=== PATIENT | female | born 1995 | race Asian ===

== ENCOUNTER 2017-02-16 23:54 | Emergency (ER) | payer OTHER ==
[~2017-02-16] VITALS: Ht 167.6 cm; Wt 62.5 kg
[2017-02-17] VITALS: Ht 167.6 cm; Wt 62.5 kg
[2017-02-17] MEDS ORDERED: SOD CHLORIDE 0.9% 1,000 ML IV STA (00:04)
[2017-02-17] MEDS ORDERED: ONDANSETRON 4 MG INJ IV STA (00:04)
--- NOTE | 2017-02-17 00:17 | RADRPT ---
PROCEDURE: XR Chest. CLINICAL INDICATION: Chest pain. Syncope TECHNIQUE: Portable AP upright view of the chest was obtained. COMPARISON: None. FINDINGS: The cardiomediastinal silhouette is within normal limits. The lungs are clear. There is no evidenc e for pleural effusion, pneumothorax or pulmonary vascular congestion. The osseous structures are i ntact with no evidence for acute abnormality. RPTAT:HJJR IMPRESSION: No evidence for acute intrathoracic pathology. Physician David Date Time Electronically viewed and signed by Physician David on 02/17/2017 00:16 JR/
--- NOTE | 2017-02-17 00:48 | RADRPT ---
PROCEDURE: CT brain without contrast CLINICAL INDICATION: Syncope TECHNIQUE: A CT of the brain was performed utilizing axial sections from the skull base through th e vertex without contrast. Sagittal and coronal images were also reformatted. The exam CTDIvol = 45. 01 mGy and DLP = 810.25 mGy-cm. COMPARISON: None available FINDINGS: No acute intracranial hemorrhage is identified. There is no mass effect or midline shift. No extra -axial fluid collection is seen. The ventricles and sulci are within normal limits for size and con figuration. Small hypodensities within the white matter of the subcortical right frontal lobe likel y reflect the sequela of prior ischemia or trauma (series 2 image 23) Reynolds-white differentiation is preserved. The osseous structures are unremarkable. The mastoid air cells and visualized paranasal sinuses are clear. RPTAT:HJJR IMPRESSION: 1. No evidence of acute intracranial abnormality or mass effect. 2. Small hypodense area within the subcortical right frontal lobe white matter possibly the sequela of prior trauma or ischemia. Physician David Date Time Electronically viewed and signed by Physician David on 02/17/2017 00:48 /
[2017-02-17 00:55] LABS: BASOPHILS % 0.5 % (0.0-2.0); EOSINOPHILS % 0.4 % (0.0-7.0); HEMATOCRIT 37.6 % (37.0-47.0); HEMOGLOBIN 13.1 g/dl (12.0-16.0); LYMPHOCYTES # 2.8 10^3/ul (0.8-2.9); LYMPHOCYTES % 32.9 % (15.0-51.0); MEAN CORPUSCULAR HEMOGLOBIN 30.7 pg (29.0-33.0); MEAN CORPUSCULAR HGB CONC 34.8 g/dl (32.0-37.0); MEAN CORPUSCULAR VOLUME 88.1 fl (82.0-101.0); MEAN PLATELET VOLUME 9.7 fl (7.4-10.4); MONOCYTE # 0.5 10^3/ul (0.3-0.9); MONOCYTES % 6.2 % (0.0-11.0); NEUTROPHILS % 59.6 % (39.0-77.0); PLATELET COUNT 340 10^3/UL (140-415); RED BLOOD COUNT 4.27 10^6/ul (4.20-5.40); WHITE BLOOD COUNT 8.4 10^3/ul (4.8-10.8)
[2017-02-17 01:15] LABS: ANION GAP 21 (8-16); BLOOD UREA NITROGEN 11 mg/dl (7-20); CALCIUM 9.4 mg/dl (8.4-10.2); CARBON DIOXIDE 29 mmol/L (21-31); CHLORIDE 97 mmol/L (97-110); CREATININE 0.73 mg/dl (0.44-1.00); GLUCOSE 106 mg/dl (70-220); POTASSIUM 3.2 mmol/L (3.5-5.1); SODIUM 144 mmol/L (135-144)
[2017-02-17 01:24] LABS: ADD UMIC YES; UR ASCORBIC ACID NEGATIVE (NEGATIVE); UR BACTERIA FEW /HPF (NONE SEEN); UR BILIRUBIN (Dip) NEGATIVE (NEGATIVE); UR BLOOD (Dip) 1+ mg/dL (NEGATIVE); UR CLARITY SLIGHTLY CLOUDY (CLEAR); UR COLOR YELLOW (YELLOW); UR GLUCOSE (Dip) NEGATIVE (NEGATIVE); UR KETONES (Dip) 1+ mg/dL (NEGATIVE); UR LEUKOCYTE ESTERASE (Dip) TRACE Leu/ul (NEGATIVE); UR MUCUS MODERATE /HPF (NONE SEEN); UR NITRITE (Dip) NEGATIVE (NEGATIVE); UR RBC 4 /HPF (0-5); UR SPECIFIC GRAVITY (Dip) 1.028 (1.003-1.030); UR SQUAMOUS EPITHELIAL CELL FEW /HPF (FEW); UR TOTAL PROTEIN (Dip) NEGATIVE (NEGATIVE); UR UROBILINOGEN (Dip) 2+ mg/dL (NEGATIVE)
[2017-02-17 01:29] LABS: TROPONIN-I < 0.012 ng/ml (0.00-0.12)
[2017-02-17 01:40] LABS: CANNABINOIDS Positive (NEGATIVE)
--- NOTE | 2017-02-17 01:45 | ERD ---
ER Documentation Chief Complaint Date/Time DATE: 02/17/17 TIME: 01:44 Chief Complaint left head pain r/t fall,syncope,vomiting HPI There is a 22-year-old female with left hand pain status post falling and hitting her head. She did have 2 seconds of loss of consciousness. This happened last night. She said she has been nauseous and vomited 3 times today which is nonbilious nonbloody. No fevers no chills. No focal neurological complaints. Mild headache. No visual acuity changes. No other current issues ROS All systems reviewed and are negative except as per history of present illness. Allergies Allergies: Coded Allergies: No Known Allergy (Unverified , 02/17/17) PMhx/Soc Medical and Surgical Hx: pt denies Medical Hx, pt denies Surgical Hx Hx Alcohol Use: Yes Hx Substance Use: Yes Hx Tobacco Use: Yes Smoking Status: Current some day smoker Physical Exam Vitals Vital Signs Date Time Temp Pulse Resp B/P Pulse Ox O2 Delivery O2 Flow Rate FiO2 02/17/17 00:00 97.5 64 18 134/87 97 Physical Exam Const: [] Head: Atraumatic Eyes: Normal Conjunctiva ENT: Normal External Ears, Nose and Mouth. Neck: Full range of motion..~ No meningismus. Resp: Clear to auscultation bilaterally Cardio: Regular rate and rhythm, no murmurs Abd: Soft, non tender, non distended. Normal bowel sounds Skin: No petechiae or rashes Back: No midline or flank tenderness Ext: No cyanosis, or edema Neur: Awake and alert Psych: Normal Mood and Affect Result Diagram: 02/17/17 0030 02/17/17 0030 Results 24 hrs Laboratory Tests Test 02/17/17 00:30 White Blood Count 8.410^3/ul Red Blood Count 4.2710^6/ul Hemoglobin 13.1g/dl Hematocrit 37.6% Mean Corpuscular Volume 88.1fl Mean Corpuscular Hemoglobin 30.7pg Mean Corpuscular Hemoglobin Concent 34.8g/dl Red Cell Distribution Width 12.0% Platelet Count 53799^3/UL Mean Platelet Volume 9.7fl Neutrophils % 59.6% Lymphocytes % 32.9% Monocytes % 6.2% Eosinophils % 0.4% Basophils % 0.5% Nucleated Red Blood Cells % 0.0/100WBC Neutrophils # 5.010^3/ul Lymphocytes # 2.810^3/ul Monocytes # 0.510^3/ul Eosinophils # 0.010^3/ul Basophils # 0.010^3/ul Nucleated Red Blood Cells # 0.010^3/ul Urine Color YELLOW Urine Clarity SLIGHTLY CLOUDY Urine pH 6.0 Urine Specific Elmore 1.028 Urine Ketones 1+mg/dL Urine Nitrite NEGATIVEmg/dL Urine Bilirubin NEGATIVEmg/dL Urine Urobilinogen 2+mg/dL Urine Leukocyte Esterase TRACELeu/ul Urine Microscopic RBC 4/HPF Urine Microscopic WBC 7/HPF Urine Squamous Epithelial Cells FEW/HPF Urine Bacteria FEW/HPF Urine Mucus MODERATE/HPF Urine Hemoglobin 1+mg/dL Urine Glucose NEGATIVEmg/dL Urine Total Protein NEGATIVEmg/dl Sodium Level 144mmol/L Potassium Level 3.2mmol/L Chloride Level 97mmol/L Carbon Dioxide Level 29mmol/L Anion Gap 21 Blood Urea Nitrogen 11mg/dl Creatinine 0.73mg/dl Glucose Level 106mg/dl Calcium Level 9.4mg/dl Troponin I < 0.012ng/ml Current Medications Medications (Trade) Dose Ordered Sig/Katiana Route PRN Reason Start Time Stop Time Status Last Admin Dose Admin Sodium Chloride (NS) 1,000 ml @ 1,000 mls/hr Q1H STAT IV 02/17/17 00:04 02/17/17 01:03 DC 02/17/17 00:42 Ondansetron HCl (Zofran Inj) 4 mg ONCE STAT IV 02/17/17 00:04 02/17/17 00:06 DC 02/17/17 00:42 Procedures/MDM EKG: Rate/Rhythm: Normal Sinus Rhythm QRS, ST, T-waves: No changes consistent w/ acute ischemia Impression: No evidence of ischemia or arrhythmia Chest X-ray 1V Interpreted by me: Soft Tissue: No acute abnormalities Bones: No acute abnormalities Mediastinum/Cardiac Silhouette/Lungs: No acute abnormalities CT of the head was read as negative by the radiologist Patient's syncopal symptoms have stabilized while in the department and are suitable for outpatient follow up. Exam and work up not consistent w/ ischemia, arrhythmia, stroke, PE or dissection. Departure Diagnosis: Primary Impression: Acute head injury Encounter type: initial encounter Qualified Code: S09.90XA - Acute head injury, initial encounter Additional Impressions: Closed head injury Encounter type: initial encounter Qualified Code: S09.90XA - Closed head injury, initial encounter Syncope Syncope type: unspecified Qualified Code: R55 - Syncope, unspecified syncope type Condition: Stable LEONIE ZARATE Feb 17, 2017 01:45
[2017-02-17 01:46] LABS: BARBITURATES Negative (NEGATIVE); BENZODIAZEPINES Negative (NEGATIVE); COCAINE Negative (NEGATIVE); OPIATES Negative (NEGATIVE)
[2017-02-17] MEDS ORDERED: TRAM50TA2 PO (01:46)
[2017-02-17] MEDS ORDERED: ONDA4TAB14 PO (01:46)
[2017-02-17 01:55] VITALS: BP 120/89; PULSE 51; RESP 18; TEMP 98.1
== END 2017-02-17 01:57 | disposition home or self-care (01) ==
LOC: E/R 23:54
DX: S09.90XA Unspecified injury of head, initial encounter (principal); R55 Syncope and collapse; F17.210 Nicotine dependence, cigarettes, uncomplicated; W18.09XA Striking against other object with subsequent fall, initial encounter; Y92.9 Unspecified place or not applicable
CPT/HCPCS: 70450; 71010; 80048; 80307; 81001; 84484; 85025; 93005; 96374; 99285; J2405; J7030